=== PATIENT | female | born 1960 | race Caucasian/White ===

== ENCOUNTER 2019-01-24 23:47 | Emergency (ER) | payer SELFPAY ==
[~2019-01-24] VITALS: Ht 167.6 cm; Wt 88.5 kg
[~2019-01-24 23:47] MED LIST: AMITRIPTYLINE H75 MG PO; BENICAR40 MG
--- OUTSIDE RECORDS SUMMARY | 2019-01-24 23:51 | XMS REPORT | Continuity of Care Document ---
Author Author [facility] Interface Address Unknown Phone Unavailable Problems Problem Status Onset Date Classification Date Reported Comments Source MEDICATION REFILL Active 08/16/2018 [facility] Discharge Diagnosis: Knee pain, left 05/20/2016 05/24/2016 [facility] Discharge Diagnosis: Left knee DJD 05/20/2016 05/24/2016 [facility] ANXIETY Active 05/20/2016 [facility] Anxiety Active Problem 05/24/2016 [facility] HTN - Hypertension Active Problem 05/24/2016 [facility] Medications Medication Details Route Status Patient Instructions Ordering Provider Order Date Source Clonidine Hydrochloride 0.2 MG Oral Tablet 0.2 mg, 1 tab, Route: PO, Drug form: TAB, ONCE, Dosing Weight 98.045, kg, Priority: STAT, Start date: 05/20/16 23:55:00 CDT, Stop date: 05/20/16 23:55:00 CDTNotes: (Same As: Catapres) Inactive 05/21/2016 [facility] tramadol hydrochloride 50 MG Oral Tablet 50 mg=1 tab, PO, BID, X 15 day, # 30 tab, 0 Refill(s) Active 05/21/2016 [facility] Allergies, Adverse Reactions, Alerts Substance Category Reaction Severity Reaction type Status Date Reported Comments Source penicillins Assertion Drug allergy Active [facility] Immunizations Immunization Date Given Site Status Last Updated Comments Source influenza virus vaccine, inactivated 09/06/2010 Left deltoid completed Indira [facility] Results Order Name Results Value Reference Range Date Interpretation Comments Source Chest 1view DX Chest 1view DX XR CHEST 1 VIEW HISTORY: - Hypertension. COMPARISON: CXR 09/06/2010 FINDINGS: The lungs are clear. The heart and vascular markings are normal. No pleural abnormality. The bones are intact. IMPRESSION: No active process. SL: CANDI 08/16/2018 - - Read by: Richie Garcia MD Dictated Date/time: 08/16/18 19:08 Electronically Signed by: Richie Garcia MD 08/16/18 19:09 FINAL REPORT [facility] Knee 3 views DX Knee 3 views DX Patient Name: OPAL ARIZA : 1960; Age: 55 years y/o Female MR: [id number] Study: Knee 3 views DX 05/20/2016 9:41 PM CDT Ordering Physician: Clinical Indication: Pain from a fall; left knee pain status post fall Comparison: None FINDINGS: The 4 views of the left knee show normal alignment without fractures or dislocations. The medial and lateral tibiofemoral compartments and patellofemoral compartment are normal. There is no knee region soft tissue swelling. Hoffa's fat pad region is unremarkable. There are no joint bodies. Suprapatella bursa shows small joint effusion. There are no radiopaque foreign bodies. If there is further concern, recommend follow-up radiographs or MRI for complete assessment. IMPRESSION: 1. No fractures or dislocation of the knee. SL: LIZABETH 05/20/2016 - - Read by: Nahun Garcia MD Dictated Date/time: 05/20/16 23:14 Electronically Signed by: Nahun Garcia MD 05/20/16 23:15 FINAL REPORT [facility] Vital Signs Vital Sign Value Date Comments Source Systolic (mm Hg) 195 05/21/2016 [facility] Diastolic (mm Hg) 88 05/21/2016 [facility] Respitory Rate 20 05/21/2016 [facility] Heart Rate 83 05/21/2016 [facility] Temperature Oral (F) 97.0 F 05/21/2016 [facility] Respitory Rate 20 05/21/2016 [facility] Systolic (mm Hg) 208 05/21/2016 [facility] Diastolic (mm Hg) 97 05/21/2016 [facility] Heart Rate 82 05/21/2016 [facility] Temperature Oral (F) 97.0 F 05/21/2016 [facility] Respitory Rate 20 05/21/2016 [facility] Systolic (mm Hg) 197 05/21/2016 [facility] Diastolic (mm Hg) 104 05/21/2016 [facility] Heart Rate 77 05/21/2016 [facility] Weight 98.045 05/21/2016 [facility] BMI Calculated 34.89 05/21/2016 [facility] Temperature Oral (F) 98.2 F 05/21/2016 [facility] Height 167.64 cm 05/21/2016 [facility] Encounters Location Location Details Encounter Type Encounter Number Reason For Visit Attending Provider ADM Date DC Date Status Source [facility] Emergency [id number] Tima Diaz 05/21/2016 05/21/2016 [facility] Procedure Code Date Perfomer Comments Source Cholecystectomy [id number] [facility]
--- OUTSIDE RECORDS SUMMARY | 2019-01-24 23:51 | XMS REPORT | Summary of Care ---
Author Author [facility] Organization [facility] Address Unknown Phone Unavailable Encounter AIDA Cortez(MILES) [id number] Date(s): 05/20/16 - 05/21/16 [facility] [address] [place] [address]- Discharge Diagnosis: Knee pain, left Discharge Diagnosis: Left knee DJD Discharge Disposition: Home or Self Care Attending Physician: Tima Diaz MD Vital Signs 1 2 3 Most recent to oldest [Reference Range]: 167.64 cm (05/20/16 9:36 PM) Height 97.0 DegF (05/21/16 12:25 AM) 97.0 DegF (05/20/16 11:45 PM) 98.2 DegF (05/20/16 9:36 PM) Temperature Oral [96.4-99.1 DegF] 195/88 mmHg *HI* (05/21/16 12:25 AM) 208/97 mmHg *HI* (05/20/16 11:45 PM) 197/104 mmHg *HI* (05/20/16 10:06 PM) Blood Pressure [90-140/60-90 mmHg] 20 BRMIN (05/21/16 12:25 AM) 20 BRMIN (05/20/16 11:45 PM) 20 BRMIN (05/20/16 10:06 PM) Respiratory Rate [14-20 BRMIN] 83 bpm (05/21/16 12:25 AM) 82 bpm (05/20/16 11:45 PM) 77 bpm (05/20/16 10:06 PM) Peripheral Pulse Rate [60-100 bpm] 98.045 kg (05/20/16 9:36 PM) Weight 34.89 m2 (05/20/16 9:36 PM) Body Mass Index Problem List Condition Effective Dates Status Health Status Informant Anxiety(Confirmed) Active HTN - Active Hypertension(Confirm ed) Allergies, Adverse Reactions, Alerts Substance Reaction Severity Status penicillins Active Medications cloNIDine 0.2 mg oral tablet 0.2 mg, 1 tab, Route: PO, Drug form: TAB, ONCE, Dosing Weight 98.045, kg, Priori ty: STAT, Start date: 05/20/16 23:55:00 CDT, Stop date: 05/20/16 23:55:00 CDT Notes: (Same As: Mini) Start Date: 05/20/16 Stop Date: 05/20/16 Status: Completed tramadol 50 mg oral tablet 50 mg=1 tab, PO, BID, X 15 day, # 30 tab, 0 Refill(s) Start Date: 05/20/16 Stop Date: 06/04/16 Status: Ordered Results No data available for this section Immunizations Given and Recorded Vaccine Date Status Refusal Reason influenza virus vaccine, inactivated 09/06/10 Given Procedures Procedure Date Related Diagnosis Body Site Cholecystectomy Social History Social History Type Response Smoking Status Current every day smoker; Type: Cigarettes; Previous treatment: None; Ready to change: No; Concerns about tobacco use in household: Yes; Exposure to Tobacco Smoke None; Cigarette Smoking Last 365 Days Yes; Reg Smoking Cessation Counseling No Assessment and Plan No data available for this section
--- OUTSIDE RECORDS SUMMARY | 2019-01-24 23:51 | XMS REPORT ---
Author Author [facility] Address Unknown Phone Unavailable Care Team Providers Care Career Specialist Name Role Phone Des PENNINGTON Unavailable Unavailable Payers Payer Name Policy Type Policy Number Effective Date Expiration Date Problems This patient has no known problems. Allergies, Adverse Reactions, Alerts Allergy Name Allergy Type Status Severity Reaction(s) Onset Date Inactive Date Treating Clinician Comments Penicillins DA Active SV 2017-09-04 00:00:00 Medications This patient has no known medications. Results Test Description Test Time Test Comments Text Results Atomic Results Result Comments CHEST 2 VIEWS [place] [address] Patient Name: OPAL ARIZA MR #: [id number] : 1960 Age/Sex: 56/F Req #: [id number] Adm Physician: Ordered by: GAVINO PENNINGTON MD Report #: [id number] Location: ER Room/Bed: Procedure: [id number] DX/CHEST 2 VIEWS Exam Date: 06/17/17 Exam Time: 2039 REPORT STATUS: Signed EXAM: CHEST 2 VIEWS, PA and lateral DATE: 06/17/2017 8:03 PM Time stamp on exam: 2044 INDICATION: Severe headache COMPARISON: AP view of the chest January 25, 2009 FINDINGS: LINES/TUBES: None LUNGS: No consolidations or edema. PLEURA: No effusions or pneumothorax. HEART AND MEDIASTINUM: Normal size and contour. BONES AND SOFT TISSUES: No acute findings. IMPRESSION: No acute thoracic abnormality. Signed by: Dr. Denys Cuello M.D. on 06/17/2017 9:16 PM Dictated By: DENYS CUELLO MD 15 Transcribed By: ALIYA on 06/17/172115 COPY TO: GAVINO PENNINGTON MD CT BRAIN WO [place] [address] Patient Name: OPAL ARIZA MR #: [id number] : 1960 Age/Sex: 56/F Req #: [id number] Adm Physician: Ordered by: GAVINO PENNINGTON MD Report #: [id number] Location: ER Room/Bed: Procedure: [id number] CT/CT BRAIN WO Exam Date: 06/17/17 Exam Time: 2032 REPORT STATUS: Signed EXAMINATION: Head CT HISTORY: Tension headaches, cough, congestion for one day COMPARISON: None available TECHNIQUE: Multidetector axial images were obtained without contrast from the foramen magnum to the vertex . The images were reconstructed using brain and bone algorithms. Thin section brain images were reformatted into coronal and sagittal planes. Intravenous contrast: None. Motion/streaking artifact limits the evaluation of the skull base and posterior cranial fossa. FINDINGS: Parenchyma: 1. No abnormal densities. 2. No mass or hemorrhage. No CT evidence of acute territorial vascular insult. Extra-axial spaces:No abnormal density. No extra-axial fluid collections Brain volume: Normal for age. Ventricles: No hydrocephalus or displacement. Arteries: No density suggestive of thrombus. Dural sinuses: No abnormal density. Extra-axial spaces: No abnormal density. Foramen magnum: No mass, Chiari malformation, or basilar invagination. Sella: No obvious mass. Paranasal/mastoid sinuses: Imaged portions unremarkable. Skull/Scalp: No lytic or blastic lesions. No fractures. IMPRESSION: Normal head CT. Particularly no intracranial hemorrhage. Signed by: Dr. Josefina Mcfarland M.D. on 06/17/2017 10:00 PM Dictated By: JOSEFINA MCFARLAND MD 99 Transcribed By: ALIYA on 06/17/172199 COPY TO: GAVINO PENNINGTON MD
== END 2019-01-25 00:31 | disposition left against medical advice (07) ==
LOC: ER 23:47
DX: R21 Rash and other nonspecific skin eruption (principal)